=== PATIENT | female | born 1995 | race American Indian/Alaskan Native ===

== ENCOUNTER 2016-07-27 17:58 | Emergency (ER) | payer MEDICAID ==
[2016-07-27 18:15] VITALS: BP 98/66
--- NOTE | 2016-07-27 18:31 | EDM.PDOC ---
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 She complains of being late on her period. she notes menses on June 20 that lasted for a week. she notes intermittent symptoms of cramping with a past few weeks. She has not had her normal menses for the month of July. No fever chills or night sweats. No pelvic pain. No dysuria. No constipation or diarrhea. No pain into the flank. Denies cough or shortness of breath. patient underwent section and the May. She states that she had a period in June that lasted for a week. Patient is not breast-feeding. Patient admits to intercourse with condom usage Timing/Duration: Reports: Week(s):, Gradual onset, Intermittent Location: generalized Quality: Reports: ache, cramping Severity: mild Associated Symptoms (-Female): Reports: denies other symptoms - Related Data Allergies/ADRs: Allergies Allergy/AdvReac Type Severity Reaction Status Date / Time No Known Allergies Allergy Verified 04/14/16 21:12 Home Meds: Home Meds Cyanocobalamin (Vitamin B-12) [Cyanocobalamin Injection] 1,000 mcg IJ ASDIRECTED 02/14/16 [History] Ergocalciferol (Vitamin D2) [Vitamin D] 400 unit PO DAILY 02/14/16 [History] Omeprazole 40 mg PO DAILY 02/14/16 [History] Vit W-Ca,Fe,FA(<1 mg) [ Vitamins] 1 tab PO DAILY 02/14/16 [ History] Pyridoxine HCl [Vitamin B-6] 100 mg PO DAILY 02/14/16 [History] Cephalexin [Keflex] 500 mg PO DAILY 04/14/16 [History] Past Medical History - Past Health History Medical/Surgical History: Denies Medical/Surgical History HEENT History: Reports: Impaired vision Other HEENT History: wears glasses Cardiovascular History: Reports: Heart murmur Respiratory History: Reports: None Gastrointestinal History: Reports: GERD Genitourinary History: Reports: UTI, recurrent 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 Currently Other Musculoskeletal History: bursitits to left shoulder Neurological History: Reports: None Psychiatric History: Reports: Anxiety, Depression Endocrine/Metabolic History: Reports: None, Obesity/BMI 30+ Hematologic History: Reports: Anemia, B12 deficiency, Idiopathic thrombocytopenia, Other (see below) Other Hematologic History: B6 deficiency Immunologic History: Reports: None Oncologic (Cancer) History: Reports: None Dermatologic History: Reports: None - Infectious Disease History Infectious Disease History: Reports: None - Past Surgical History Head Surgeries/Procedures: Reports: None GI Surgical History: Reports: Cholecystectomy Female Surgical History: Reports: section Social & Family History - Family History Family Medical History: Noncontributory - Tobacco Use Smoking Status *Q: Current Every Day Smoker Years of Tobacco use: 6 Packs/Tins Daily: 0.1 Used Tobacco, but Quit: Yes Month Tobacco Last Used: September Second Hand Smoke Exposure: Yes - Caffeine Use Caffeine Use: Reports: Coffee, Soda - Alcohol Use Days Per Week of Alcohol Use: 1 Number of Drinks Per Day: 8 Total Drinks Per Week: 8 - Recreational Drug Use Recreational Drug Use: No - Sexual History Sexual History: Reports: Sexually active - Living Situation & Occupation Living situation: Reports: with family ED ROS GENERAL - Review of Systems Review Of Systems: ROS reveals no pertinent complaints other than HPI. ED EXAM, GI/ABD - Physical Exam Exam: See Below Exam Limited By: No limitations General Appearance: alert, WD/WN, no apparent distress Throat/Mouth: Normal inspection, Normal oropharynx Neck: normal inspection, supple, non-tender, full range of motion Respiratory/Chest: no respiratory distress, lungs clear Cardiovascular: regular rate, rhythm, no murmur GI/Abdominal: normal bowel sounds, soft, no distention, other (mild tenderness to the right and left lower quadrants along with suprapubic. Pain is out of proportion) Back Exam: No: CVA tenderness (L), CVA tenderness (R) Extremities: normal inspection, normal capillary refill Neurological: alert, oriented, CN II-XII intact Skin Exam: Warm, Dry, Intact Course - Vital Signs Last Recorded V/S: Last Vital Signs Temp 97 F 07/27/16 18:12 Pulse 86 07/27/16 18:12 Resp 18 07/27/16 18:12 BP 98/66 07/27/16 18:12 Pulse Ox 100 07/27/16 18:12 - Orders/Labs/Meds Labs: Laboratory Tests 07/27/16 07/27/16 07/27/16 Range/Units 18:08 18:08 18:40 WBC 5.3 (5.0-10.0) 10^3/uL RBC 4.51 (4.2-5.4) 10^6/uL Hgb 12.0 (12.0-16.0) g/dL Hct 37.1 (37.0-47.0) % MCV 82.3 (80-100) fL MCH 26.6 L (27.0-34.0) pg MCHC 32.3 L (33.0-35.0) g/dL Plt Count 124 L (150-450) 10^3/uL Neut % (Auto) 62.0 (42.2-75.2) % Lymph % (Auto) 26.6 (20.5-50.1) % [place] % (Auto) 8.7 H (2-8) % Eos % (Auto) 2.5 (1.0-3.0) % Baso % (Auto) 0.2 (0.0-1.0) % Sodium (135-145) mmol/L Potassium (3.6-5.0) mmol/L Chloride (101-111) mmol/L Carbon Dioxide (21.0-31.0) mmol/L Anion Gap BUN (7-18) mg/dL Creatinine (0.6-1.3) mg/dL Est Cr Clr Drug Dosing mL/min Estimated GFR (MDRD) Glucose (74-105) mg/dL Calcium (8.4-10.2) mg/dl Amylase (28-100) U/L HCG, Quant (0-25) mIU/ml Beta HCG, Quant mIU/ml Urine Color Yellow (YELLOW) Urine Appearance Slightly cloudy (CLEAR) Urine pH 7.0 (5.0-9.0) Ur Specific [place] 1.020 (1.005-1.030) Urine Protein Negative (NEGATIVE) Urine Glucose (UA) Negative (NEGATIVE) Urine Ketones Negative (NEGATIVE) Urine Occult Blood Negative (NEGATIVE) Urine Nitrite Negative (NEGATIVE) Urine Bilirubin Negative (NEGATIVE) Urine Urobilinogen 0.2 (0.2-1.0) mg/dL Ur Leukocyte Esterase Negative (NEGATIVE) Urine RBC 0-5 /HPF Urine WBC 0-5 (0-5/HPF) /HPF Ur Epithelial Cells Many H /HPF Urine Bacteria Moderate H (0-FEW/HPF) /HPF Urine HCG, Qual Positive 07/27/16 07/27/16 Range/Units 18:40 18:40 WBC (5.0-10.0) 10^3/uL RBC (4.2-5.4) 10^6/uL Hgb (12.0-16.0) g/dL Hct (37.0-47.0) % MCV (80-100) fL MCH (27.0-34.0) pg MCHC (33.0-35.0) g/dL Plt Count (150-450) 10^3/uL Neut % (Auto) (42.2-75.2) % Lymph % (Auto) (20.5-50.1) % [place] % (Auto) (2-8) % Eos % (Auto) (1.0-3.0) % Baso % (Auto) (0.0-1.0) % Sodium 137 (135-145) mmol/L Potassium 3.6 (3.6-5.0) mmol/L Chloride 105 (101-111) mmol/L Carbon Dioxide 24.0 (21.0-31.0) mmol/L Anion Gap 11.6 BUN 11 (7-18) mg/dL Creatinine 0.7 (0.6-1.3) mg/dL Est Cr Clr Drug Dosing 99.70 mL/min Estimated GFR (MDRD) > 60 Glucose 79 (74-105) mg/dL Calcium 8.6 (8.4-10.2) mg/dl Amylase 46 (28-100) U/L HCG, Quant > 1370 H (0-25) mIU/ml Beta HCG, Quant 2323 mIU/ml Urine Color (YELLOW) Urine Appearance (CLEAR) Urine pH (5.0-9.0) Ur Specific [place] (1.005-1.030) Urine Protein (NEGATIVE) Urine Glucose (UA) (NEGATIVE) Urine Ketones (NEGATIVE) Urine Occult Blood (NEGATIVE) Urine Nitrite (NEGATIVE) Urine Bilirubin (NEGATIVE) Urine Urobilinogen (0.2-1.0) mg/dL Ur Leukocyte Esterase (NEGATIVE) Urine RBC /HPF Urine WBC (0-5/HPF) /HPF Ur Epithelial Cells /HPF Urine Bacteria (0-FEW/HPF) /HPF Urine HCG, Qual - Re-Assessments/Exams Free Text/Narrative Re-Assessment/Exam: patient has a positive hCG. Ultrasound is unavailable tonight. Patient's last menstrual period was last month. 07/27/16 19:25 Departure - Departure Time of Disposition: 20:11 Disposition: Home, Self-Care 01 Condition: good Clinical Impression: Positive test Forms: ED Department Discharge Additional Instructions: follow up with your regular provider as scheduled for tomorrow. check on your quantitative hCG
[2016-07-27 19:04] LABS: CHLORIDE,CL 105 mmol/L (101-111); SODIUM,NA 137 mmol/L (135-145)
== END 2016-07-27 20:19 | disposition home or self-care (01) ==
LOC: DL.ED 17:58
DX: Z32.01 Encounter for pregnancy test, result positive (principal); R01.1 Cardiac murmur, unspecified; K21.9 Gastro-esophageal reflux disease without esophagitis; F41.9 Anxiety disorder, unspecified; F32.9 Major depressive disorder, single episode, unspecified; E66.9 Obesity, unspecified; F17.210 Nicotine dependence, cigarettes, uncomplicated; Z87.440 Personal history of urinary (tract) infections; Z79.899 Other long term (current) drug therapy; Z86.2 Personal history of diseases of the blood and blood-forming organs and certain disorders involving the immune mechanism; Z90.49 Acquired absence of other specified parts of digestive tract
CPT/HCPCS: 36415; 80048; 81001; 81025; 82150; 84702; 85025; 99283

== ENCOUNTER 2019-01-12 10:54 | Emergency (ER) | payer OTHER, MEDICAID ==
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
[2019-01-12 11:25] VITALS: BP 120/65; PULSE 86
[2019-01-12] MEDS ORDERED: Ibuprofen 800 MG Tab PO ONE (11:37)
== END 2019-01-12 12:10 | disposition home or self-care (01) ==
LOC: DL.ED 10:54
DX: S80.02XA Contusion of left knee, initial encounter (principal); E66.9 Obesity, unspecified; Z68.36 Body mass index [BMI] 36.0-36.9, adult; V49.9XXA Car occupant (driver) (passenger) injured in unspecified traffic accident, initial encounter; Y92.410 Unspecified street and highway as the place of occurrence of the external cause
CPT/HCPCS: 73562; 99283; A9270

== ENCOUNTER 2019-10-22 | Emergency (ER) | payer MEDICAID ==
[2019-10-22 00:26] VITALS: BP 129/72; PULSE 77
[2019-10-22 00:55] LABS: ANION GAP 13.8 mEq/L (7-13); CHLORIDE,CL 102 mmol/L (98-107); SODIUM,NA 140 mmol/L (136-145)
--- NOTE | 2019-10-22 01:34 | EDM.PDOC ---
ED HPI GENERAL MEDICAL PROBLEM - General Chief Complaint: General Stated Complaint: STROKE? Time Seen by Provider: 10/22/19 01:30 Source of Information: Reports: Patient History Limitations: Reports: No Limitations - History of Present Illness INITIAL COMMENTS - FREE TEXT/NARRATIVE: c/o on-off tingling sensation in arms and legs. had this long time ago and went away but this time lasting lot longer. denies been anxious or stressed. 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 Currently Other Musculoskeletal History: bursitits to left shoulder Neurological History: Reports: None Psychiatric History: Reports: Anxiety, Depression Endocrine/Metabolic History: Reports: None, Obesity/BMI 30+ Hematologic History: Reports: Anemia, B12 Deficiency, Idiopathic Thrombocytopenia, Other (See Below) Other Hematologic History: B6 deficiency Immunologic History: Reports: None Oncologic (Cancer) History: Reports: None Dermatologic History: Reports: None - Infectious Disease History Infectious Disease History: Reports: None - Past Surgical History Head Surgeries/Procedures: Reports: None GI Surgical History: Reports: Cholecystectomy Female Surgical History: Reports: Section Social & Family History - Family History Family Medical History: Noncontributory - Tobacco Use Smoking Status *Q: Current Some Day Smoker Years of Tobacco use: 4 Packs/Tins Daily: 0.1 - Caffeine Use Caffeine Use: Reports: Soda - Recreational Drug Use Recreational Drug Use: No - Sexual History Sexual History: Reports: Sexually Active - Living Situation & Occupation Living situation: Reports: with Family Occupation: Employed ED ROS GENERAL - Review of Systems Review Of Systems: Comprehensive ROS is negative, except as noted in HPI. ED EXAM, GENERAL - Physical Exam Exam: See Below Exam Limited By: No Limitations General Appearance: Alert, WD/WN, No Apparent Distress Eye Exam: Bilateral Eye: PERRL (pupils ER @ 4mm) Ears: Hearing Grossly Normal Throat/Mouth: Normal Voice, No Airway Compromise Head: Atraumatic Neck: Non-Tender, Full Range of Motion Respiratory/Chest: No Respiratory Distress Cardiovascular: Regular Rate, Rhythm GI/Abdominal: Soft, Non-Tender Neurological: Alert, Oriented, Normal Cognition, Normal Gait, No Motor/Sensory Deficits Psychiatric: Flat Affect Skin Exam: Warm, Dry, Normal Color Lymphatic: No Adenopathy Course - Vital Signs Text/Narrative:: discussed with pt. Last Recorded V/S: Last Vital Signs Temp 36.4 C 10/22/19 00:19 Pulse 77 10/22/19 00:19 Resp 19 10/22/19 00:19 BP 129/72 10/22/19 00:19 Pulse Ox 100 10/22/19 00:19 - Orders/Labs/Meds Labs: Laboratory Tests 10/22/19 10/22/19 10/22/19 Range/Units 00:27 00:27 01:06 WBC 7.9 (5.0-10.0) 10^3/uL RBC 4.99 (4.2-5.4) 10^6/uL Hgb 13.5 (12.0-16.0) g/dL Hct 41.1 (37.0-47.0) % MCV 82.4 (80-100) fL MCH 27.1 (27.0-34.0) pg MCHC 32.8 L (33.0-35.0) g/dL Plt Count 102 L (150-450) 10^3/uL Neut % (Auto) 62.8 (42.2-75.2) % Lymph % (Auto) 28.7 (20.5-50.1) % [place] % (Auto) 5.7 (2-8) % Eos % (Auto) 2.5 (1.0-3.0) % Baso % (Auto) 0.3 (0.0-1.0) % Sodium 140 (136-145) mmol/L Potassium 3.8 (3.5-5.1) mmol/L Chloride 102 (98-107) mmol/L Carbon Dioxide 28 (21-32) mmol/L Anion Gap 13.8 H (7-13) mEq/L BUN 13 (7-18) mg/dL Creatinine 0.86 (0.55-1.02) mg/dL Est Cr Clr Drug Dosing 79.09 mL/min Estimated GFR (MDRD) > 60 BUN/Creatinine Ratio 15.1 (No establ ref range) Glucose 102 H (74-99) mg/dL Calcium 8.5 (8.5-10.1) mg/dL Total Bilirubin 0.2 (0.2-1.0) mg/dL AST 15 (15-37) U/L ALT 28 (14-59) U/L Alkaline Phosphatase 109 (46-116) U/L Total Protein 7.5 (6.4-8.2) g/dL Albumin 3.8 (3.4-5.0) g/dL Globulin 3.7 Albumin/Globulin Ratio 1.0 Urine Color Light yellow (YELLOW) Urine Appearance Clear (CLEAR) Urine pH 7.5 (5.0-9.0) Ur Specific [place] 1.020 (1.005-1.030) Urine Protein Negative (NEGATIVE) Urine Glucose (UA) Negative (NEGATIVE) Urine Ketones Negative (NEGATIVE) Urine Occult Blood Negative (NEGATIVE) Urine Nitrite Negative (NEGATIVE) Urine Bilirubin Negative (NEGATIVE) Urine Urobilinogen 0.2 (0.2-1.0) mg/dL Ur Leukocyte Esterase Negative (NEGATIVE) Urine HCG, Qual Urine Opiates Screen (NEGATIVE) Ur Oxycodone Screen (NEGATIVE) Urine Methadone Screen (NEGATIVE) Ur Barbiturates Screen (NEGATIVE) U Tricyclic Antidepress (NEGATIVE) Ur Phencyclidine Scrn (NEGATIVE) Ur Amphetamine Screen (NEGATIVE) U Methamphetamines Scrn (NEGATIVE) Urine MDMA Screen (NEGATIVE) U Benzodiazepines Scrn (NEGATIVE) Urine Cocaine Screen (NEGATIVE) U Marijuana (THC) Screen (NEGATIVE) Ethyl Alcohol < 3 (0) mg/dL 10/22/19 10/22/19 Range/Units 01:06 01:06 WBC (5.0-10.0) 10^3/uL RBC (4.2-5.4) 10^6/uL Hgb (12.0-16.0) g/dL Hct (37.0-47.0) % MCV (80-100) fL MCH (27.0-34.0) pg MCHC (33.0-35.0) g/dL Plt Count (150-450) 10^3/uL Neut % (Auto) (42.2-75.2) % Lymph % (Auto) (20.5-50.1) % [place] % (Auto) (2-8) % Eos % (Auto) (1.0-3.0) % Baso % (Auto) (0.0-1.0) % Sodium (136-145) mmol/L Potassium (3.5-5.1) mmol/L Chloride (98-107) mmol/L Carbon Dioxide (21-32) mmol/L Anion Gap (7-13) mEq/L BUN (7-18) mg/dL Creatinine (0.55-1.02) mg/dL Est Cr Clr Drug Dosing mL/min Estimated GFR (MDRD) BUN/Creatinine Ratio (No establ ref range) Glucose (74-99) mg/dL Calcium (8.5-10.1) mg/dL Total Bilirubin (0.2-1.0) mg/dL AST (15-37) U/L ALT (14-59) U/L Alkaline Phosphatase (46-116) U/L Total Protein (6.4-8.2) g/dL Albumin (3.4-5.0) g/dL Globulin Albumin/Globulin Ratio Urine Color (YELLOW) Urine Appearance (CLEAR) Urine pH (5.0-9.0) Ur Specific [place] (1.005-1.030) Urine Protein (NEGATIVE) Urine Glucose (UA) (NEGATIVE) Urine Ketones (NEGATIVE) Urine Occult Blood (NEGATIVE) Urine Nitrite (NEGATIVE) Urine Bilirubin (NEGATIVE) Urine Urobilinogen (0.2-1.0) mg/dL Ur Leukocyte Esterase (NEGATIVE) Urine HCG, Qual Negative Urine Opiates Screen Negative (NEGATIVE) Ur Oxycodone Screen Negative (NEGATIVE) Urine Methadone Screen Negative (NEGATIVE) Ur Barbiturates Screen Negative (NEGATIVE) U Tricyclic Antidepress Negative (NEGATIVE) Ur Phencyclidine Scrn Negative (NEGATIVE) Ur Amphetamine Screen Negative (NEGATIVE) U Methamphetamines Scrn Negative (NEGATIVE) Urine MDMA Screen Negative (NEGATIVE) U Benzodiazepines Scrn Negative (NEGATIVE) Urine Cocaine Screen Negative (NEGATIVE) U Marijuana (THC) Screen Negative (NEGATIVE) Ethyl Alcohol (0) mg/dL Departure - Departure Time of Disposition: 01:33 Disposition: Home, Self-Care 01 Condition: Good Clinical Impression: Paresthesia and pain of both upper extremities - Discharge Information Instructions: Paresthesia, [id number] Additional Instructions: 1) see clinic Wednesday for NEUROLOGY REFERRAL Sepsis Event Note (ED) - Evaluation Sepsis Screening Result: No Definite Risk - Focused Exam Vital Signs: Vital Signs Temp Pulse Resp BP Pulse Ox 10/22/19 00:19 36.4 C 77 19 129/72 100
== END 2019-10-22 01:38 | disposition home or self-care (01) ==
LOC: DL.ED
DX: M79.621 Pain in right upper arm (principal); M79.622 Pain in left upper arm; R20.2 Paresthesia of skin; F17.210 Nicotine dependence, cigarettes, uncomplicated; E66.9 Obesity, unspecified; Z68.36 Body mass index [BMI] 36.0-36.9, adult
CPT/HCPCS: 36415; 80053; 80305-QW; 80307; 81003; 81025; 85025; 99283; 99284

== ENCOUNTER 2019-12-02 18:41 | Emergency (ER) | payer MEDICAID ==
[2019-12-02 19:05] VITALS: BP 129/86; PULSE 92
[2019-12-02] MEDS ORDERED: Amoxicillin 500 MG Cap PO ONE (19:15)
[2019-12-02] MEDS ORDERED: Hydrocortisone/Neomycin/Polymyxin B Otic Susp 10 ML Bottle ONE (19:17)
--- NOTE | 2019-12-02 19:19 | EDM.PDOC ---
ED HPI GENERAL MEDICAL PROBLEM - General Chief Complaint: ENT Problem Stated Complaint: EAR PROBLEMS Time Seen by Provider: 12/02/19 19:16 Source of Information: Reports: Patient History Limitations: Reports: No Limitations - History of Present Illness INITIAL COMMENTS - FREE TEXT/NARRATIVE: woke up with left ear pain Left Ear Pain Score (Numeric/FACES): 5 - Related Data Allergies Allergy/AdvReac Type Severity Reaction Status Date / Time No Known Allergies Allergy Verified 12/02/19 19:00 Home Meds: Home Meds FLUoxetine [PROzac] 10 mg PO DAILY 12/02/19 [History] Past Medical History - Past Health History Medical/Surgical History: Denies Medical/Surgical History HEENT History: Reports: Impaired Vision Other HEENT History: wears glasses Cardiovascular History: Reports: Heart Murmur Respiratory History: Reports: None Gastrointestinal History: Reports: GERD Genitourinary History: Reports: UTI, Recurrent 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 Currently Other Musculoskeletal History: bursitits to left shoulder Neurological History: Reports: None Psychiatric History: Reports: Anxiety, Depression Endocrine/Metabolic History: Reports: None, Obesity/BMI 30+ Hematologic History: Reports: Anemia, B12 Deficiency, Idiopathic Thrombocytop enia, Other (See Below) Other Hematologic History: B6 deficiency Immunologic History: Reports: None Oncologic (Cancer) History: Reports: None Dermatologic History: Reports: None - Infectious Disease History Infectious Disease History: Reports: None - Past Surgical History Head Surgeries/Procedures: Reports: None GI Surgical History: Reports: Cholecystectomy Female Surgical History: Reports: Section Social & Family History - Family History Family Medical History: Noncontributory - Tobacco Use Smoking Status *Q: Light Tobacco Smoker Years of Tobacco use: 1 Packs/Tins Daily: 0.2 - Caffeine Use Caffeine Use: Reports: Soda - Recreational Drug Use Recreational Drug Use: No - Sexual History Sexual History: Reports: Sexually Active - Living Situation & Occupation Living situation: Reports: with Family Occupation: Employed ED ROS ENT - Review of Systems Review Of Systems: Comprehensive ROS is negative, except as noted in HPI. ED EXAM, ENT - Physical Exam Exam: See Below Exam Limited By: No Limitations General Appearance: Alert, WD/WN, Mild Distress, Other (discomfort) Ears: Normal External Exam, Hearing Grossly Normal, Canal Discharge, Canal Material, Canal Swelling, Other (left) Mouth/Throat: Normal Inspection Head: Atraumatic Neck: Non-Tender, Full Range of Motion Respiratory/Chest: No Respiratory Distress Cardiovascular: Regular Rate, Rhythm GI/Abdominal: Soft, Non-Tender Neurological: Alert, Oriented, Normal Cognition, Normal Gait, No Motor/Sensory Deficits Psychiatric: Flat Affect, Tearful Skin: Warm, Dry, Normal Color Lymphatic: No Adenopathy Course - Vital Signs Last Recorded V/S: Last Vital Signs Temp 36.8 C 12/02/19 19:00 Pulse 92 12/02/19 19:00 Resp 16 12/02/19 19:00 BP 129/86 12/02/19 19:00 Pulse Ox 100 12/02/19 19:00 - Orders/Labs/Meds Orders: Active Orders 24 hr Category Date Time Status Amoxicillin [Amoxil] Med 12/02/19 19:15 Once 500 mg PO ONETIME ONE Medication Orders Amoxicillin (Amoxil) 500 mg PO ONETIME ONE Stop: 12/02/19 19:16 Meds: Medications Generic Name Dose Route Start Last Admin Trade Name Zoe PRN Reason Stop Dose Admin Amoxicillin 500 mg 12/02/19 19:15 Amoxil PO 12/02/19 19:16 ONETIME ONE Departure - Departure Time of Disposition: 19:17 Disposition: Home, Self-Care 01 Condition: Good Clinical Impression: Otitis externa Qualifiers: Otitis externa type: diffuse Chronicity: acute Laterality: left Qualified Code(s): H60.312 - Diffuse otitis externa, left ear - Discharge Information Instructions: Otitis Externa, [id number] Additional Instructions: 1) don't get water inside ear 2) follow up at clinic rx togo; corticoporin otic qid x 1 week rx givne; amox 250mg tid x 30 Sepsis Event Note (ED) - Evaluation Sepsis Screening Result: No Definite Risk - Focused Exam Vital Signs: Vital Signs Temp Pulse Resp BP Pulse Ox 12/02/19 19:00 36.8 C 92 16 129/86 100 - My Orders Last 24 Hours: My Active Orders 12/02/19 19:15 Amoxicillin [Amoxil] 500 mg PO ONETIME ONE - Assessment/Plan Last 24 Hours: My Active Orders 12/02/19 19:15 Amoxicillin [Amoxil] 500 mg PO ONETIME ONE
== END 2019-12-02 19:24 | disposition home or self-care (01) ==
LOC: DL.ED 18:41
DX: H60.312 Diffuse otitis externa, left ear (principal); F32.9 Major depressive disorder, single episode, unspecified; F41.9 Anxiety disorder, unspecified; E66.9 Obesity, unspecified; F17.210 Nicotine dependence, cigarettes, uncomplicated; Z90.49 Acquired absence of other specified parts of digestive tract; Z68.36 Body mass index [BMI] 36.0-36.9, adult; Z79.899 Other long term (current) drug therapy
CPT/HCPCS: 99282; A9270; 99283

== ENCOUNTER 2020-01-07 15:37 | Emergency (ER) | payer MEDICAID ==
[2020-01-07 15:48] VITALS: BP 129/84; PULSE 107
[2020-01-07] MEDS ORDERED: Amoxicillin/Clavulanate K 875-125 MG Tab PO ONE (16:10)
--- NOTE | 2020-01-07 16:10 | EDM.PDOC ---
<Celestine Peña - Last Filed: 01/07/20 16:44> ED HPI GENERAL MEDICAL PROBLEM - General Chief Complaint: ENT Problem Stated Complaint: BOTH EARS SORE. Time Seen by Provider: 01/07/20 16:00 Source of Information: Reports: Patient History Limitations: Reports: No Limitations - History of Present Illness INITIAL COMMENTS - FREE TEXT/NARRATIVE: Patient is a 24 y/o female who presents ambulatory to the ED c/o bilateral ear pain, sinus congestion, and sore throat. Onset of illness was three days ago. She has tried Sudafed and Benadryl without relief. Reports of history of AOM about a month ago. This was treated with amoxicillin. She has been coughing up some mucus related to her sinus draining down her throat. Denies any shortness of breath. She denies fever, fatigue, weakness, headache, loss of taste/smell, nausea, vomiting, or body aches. Bilateral Ear Pain Score (Numeric/FACES): 4 - Related Data Allergies Allergy/AdvReac Type Severity Reaction Status Date / Time No Known Allergies Allergy Verified 01/07/20 15:52 Home Meds: Home Meds FLUoxetine [PROzac] 10 mg PO DAILY 12/02/19 [History] Amoxicillin/Potassium Clav [Augmentin 875-125 Tablet] 1 each PO BID 7 Days #14 tablet 01/07/20 [Rx] Cyanocobalamin (Vitamin B12) [Vitamin B12] 1,000 mcg IM Q30D 01/07/20 [History] Past Medical History - Past Health History Medical/Surgical History: Denies Medical/Surgical History HEENT History: Reports: Impaired Vision Other HEENT History: wears glasses Cardiovascular History: Reports: Heart Murmur Respiratory History: Reports: None Gastrointestinal History: Reports: GERD Genitourinary History: Reports: UTI, Recurrent HEMODIALYSIS TECHNICIAN History: Reports: Other HEMODIALYSIS TECHNICIAN History: c-sect. Currently Musculoskeletal History: Reports: Other (See Below) Other Musculoskeletal History: bursitits to left shoulder Neurological History: Reports: None Psychiatric History: Reports: Anxiety, Depression Endocrine/Metabolic History: Reports: Obesity/BMI 30+ Hematologic History: Reports: Anemia, B12 Deficiency, Idiopathic Throm bocytopenia, Other (See Below) Other Hematologic History: B6 deficiency Immunologic History: Reports: None Oncologic (Cancer) History: Reports: None Dermatologic History: Reports: None - Infectious Disease History Infectious Disease History: Reports: None - Past Surgical History Head Surgeries/Procedures: Reports: None GI Surgical History: Reports: Cholecystectomy Female Surgical History: Reports: Section Social & Family History - Family History Family Medical History: Noncontributory - Tobacco Use Smoking Status *Q: Current Every Day Smoker Years of Tobacco use: 10 Packs/Tins Daily: 0.5 - Caffeine Use Caffeine Use: Reports: Soda - Sexual History Sexual History: Reports: Sexually Active - Living Situation & Occupation Living situation: Reports: with Family Occupation: Employed ED ROS ENT - Review of Systems Review Of Systems: Comprehensive ROS is negative, except as noted in HPI. ED EXAM, ENT - Physical Exam Exam: See Below Exam Limited By: No Limitations General Appearance: Alert, WD/WN, No Apparent Distress Eye Exam: Bilateral Eye: EOMI, Normal Inspection, PERRL Ears: Normal External Exam, Normal Canal, Hearing Grossly Normal, Normal TMs (right), TM Bulging (left), TM Erythema (left) Nose: Normal Inspection, Normal Mucousa Mouth/Throat: Normal Inspection, Normal Gums, Normal Lips, Normal Oropharynx, Normal Teeth. No: Tonsillar Erythema, Tonsillar Exudates, Tonsillar Swelling Head: Atraumatic, Normocephalic Neck: Normal Inspection, Supple, Non-Tender. No: Lymphadenopathy (L), Lymphadenopathy (R) Respiratory/Chest: No Respiratory Distress, Lungs Clear, Normal Breath Sounds, No Accessory Muscle Use Cardiovascular: Normal Peripheral Pulses, Regular Rate, Rhythm, No Murmur GI/Abdominal: Normal Bowel Sounds, Soft, Non-Tender, No Distention Neurological: Alert, Oriented, Normal Cognition, Normal Gait, No Motor/Sensory Deficits Psychiatric: Normal Affect, Normal Mood Skin: Warm, Dry, Intact Departure - Departure Time of Disposition: 16:03 Disposition: Home, Self-Care 01 Condition: Good Clinical Impression: Otitis media Qualifiers: Otitis media type: suppurative Chronicity: acute Laterality: left Recurrence: recurrent Spontaneous tympanic membrane rupture: without spontaneous rupture Qualified Code(s): H66.005 - Acute suppurative otitis media without spontaneous rupture of ear drum, recurrent, left ear - Discharge Information *PRESCRIPTION DRUG MONITORING PROGRAM REVIEWED*: Not Applicable *COPY OF PRESCRIPTION DRUG MONITORING REPORT IN PATIENT TILA: Not Applicable Prescriptions: Amoxicillin/Potassium Clav [Augmentin 875-125 Tablet] 1 each PO BID 7 Days #14 tablet Instructions: Otitis Media, Adult, [id number] Forms: ED Department Discharge Additional Instructions: -Take antibiotics as prescribed -- one tablet twice a day for seven days. -Drink lots of fluids. -Use ibuprofen (up to 800 mg) every 6 hours as needed. You may also use Tylenol (up to 1000 mg) every six hours along with the ibuprofen. -Drink hot tea with honey and lemon for relief of your sore throat. -If your symptoms do not improve over the next week, follow up with your primary care provider. If you do not have a primary care provider, schedule an appointment in the clinic to establish care. Sepsis Event Note (ED) - Evaluation Sepsis Screening Result: No Definite Risk - Problem List & Annotations (1) Otitis media SNOMED Code(s): 03599975 Code(s): H66.90 - OTITIS MEDIA, UNSPECIFIED, UNSPECIFIED EAR Status: Acute Priority: Medium Qualifiers: Otitis media type: suppurative Chronicity: acute Laterality: left Recurrence: recurrent Spontaneous tympanic membrane rupture: without spontaneous rupture Qualified Code(s): H66.005 - Acute suppurative otitis media without spontaneous rupture of ear drum, recurrent, left ear - Problem List Review Problem List Initiated/Reviewed/Updated: Yes - Assessment/Plan Assessment:: Left TM is erythematous and bulging. Recurrence of acute otitis media. Plan: Prescribed 10 day course of Augmentin. First dose given prior to discharge. Counseled on symptomatic management. Follow up in primary care if symptoms do not resolve over the next week. Patient voices understanding and agreement with the plan. <Arturo Franco - Last Filed: 01/07/20 18:22> Course - Vital Signs Last Recorded V/S: Last Vital Signs Temp 98.4 F 01/07/20 15:39 Pulse 107 H 01/07/20 15:39 Resp 16 01/07/20 15:39 BP 129/84 01/07/20 15:39 Pulse Ox 100 01/07/20 15:39 - Orders/Labs/Meds Meds: Medications Discontinued Medications Generic Name Dose Route Start Last Admin Trade Name Freq PRN Reason Stop Dose Admin Amoxicillin/Clavulanate Potassium 1 tab 01/07/20 16:10 01/07/20 16:17 Augmentin 875 Mg/125 Mg PO 01/07/20 16:11 1 tab ONETIME ONE Administration - Re-Assessments/Exams Free Text/Narrative Re-Assessment/Exam: 01/07/20 16:19 I saw and evaluated the patient. Discussed with resident and agree with residents findings and plan as documented in the residents note. Sepsis Event Note (ED) - Focused Exam Vital Signs: Vital Signs Temp Pulse Resp BP Pulse Ox 01/07/20 15:39 98.4 F 107 H 16 129/84 100
== END 2020-01-07 16:25 | disposition home or self-care (01) ==
LOC: DL.ED 15:37
DX: H66.005 Acute suppurative otitis media without spontaneous rupture of ear drum, recurrent, left ear (principal); H92.03 Otalgia, bilateral; F41.9 Anxiety disorder, unspecified; F32.9 Major depressive disorder, single episode, unspecified; E66.9 Obesity, unspecified; F17.210 Nicotine dependence, cigarettes, uncomplicated; Z79.899 Other long term (current) drug therapy; Z68.29 Body mass index [BMI] 29.0-29.9, adult
CPT/HCPCS: 99282; 99283; A9270

== ENCOUNTER 2020-10-26 13:25 | Emergency (ER) | payer MEDICAID | END 2020-10-26 14:08 | disposition left against medical advice (07) | LOC: DL.ED 13:25 | DX: Z53.21 Procedure and treatment not carried out due to patient leaving prior to being seen by health care provider (principal) ==

== ENCOUNTER 2020-10-27 13:56 | Emergency (ER) | payer MEDICAID | END 2020-10-27 14:54 | disposition left against medical advice (07) | LOC: DL.ED 13:56 | DX: H92.09 Otalgia, unspecified ear (principal); Z53.21 Procedure and treatment not carried out due to patient leaving prior to being seen by health care provider ==

== ENCOUNTER 2021-05-05 11:37 | Emergency (ER) | payer MEDICAID ==
[2021-05-05 12:04] VITALS: BP 127/88; PULSE 66
[2021-05-07 12:47] LABS: C.TRACHOMATIS BY TMA Negative (Negative); N.GONORRHOEAE BY TMA Negative (Negative)
== END 2021-05-05 15:00 | disposition left against medical advice (07) ==
LOC: DL.ED 11:37
DX: Z53.21 Procedure and treatment not carried out due to patient leaving prior to being seen by health care provider (principal)
CPT/HCPCS: 36415; 81001; 81025; 87491; 87563; 87591

== ENCOUNTER 2022-01-02 19:47 | Emergency (ER) | payer MEDICAID ==
[2022-01-02] MEDS ORDERED: Ketorolac 30 MG/ML SDV IM ONE (20:42)
[2022-01-02] MEDS ORDERED: Acetaminophen 500 MG Tab PO ONE (21:50)
[2022-01-02] MEDS ORDERED: Oxymetazoline 0.05% Nasal Spray 30 ML Bottle NAS ONE (21:50)
[2022-01-02] MEDS ORDERED: Benzonatate 100 MG Cap PO ONE (21:51)
[2022-01-02 22:15] VITALS: BP 123/64; PULSE 84
== END 2022-01-02 22:17 | disposition home or self-care (01) ==
LOC: DL.ED 19:47
DX: U07.1 COVID-19 (principal); E66.9 Obesity, unspecified; Z68.38 Body mass index [BMI] 38.0-38.9, adult; Z79.899 Other long term (current) drug therapy; Z86.16 Personal history of COVID-19; Z90.49 Acquired absence of other specified parts of digestive tract
CPT/HCPCS: 99282; 99283; A9270; J1885

== ENCOUNTER 2022-07-12 23:37 | Emergency (ER) | payer MEDICAID ==
[2022-07-12 23:57] VITALS: BP 136/96; PULSE 73
[2022-07-13] MEDS ORDERED: Ketorolac 30 MG/ML SDV IVPUSH ONE (00:31)
[2022-07-13 00:50] LABS: CHLORIDE,CL 105 mmol/L (98-107); SODIUM,NA 142 mmol/L (136-145)
[2022-07-13 00:51] LABS: ESTIMATED GFR 101 mL/min (>=60)
== END 2022-07-13 01:52 | disposition home or self-care (01) ==
LOC: DL.ED 23:37
DX: R10.32 Left lower quadrant pain (principal); R10.31 Right lower quadrant pain; R11.0 Nausea; E66.9 Obesity, unspecified; F17.210 Nicotine dependence, cigarettes, uncomplicated; Z86.16 Personal history of COVID-19; Z68.37 Body mass index [BMI] 37.0-37.9, adult; Z90.49 Acquired absence of other specified parts of digestive tract
CPT/HCPCS: 36415; 80053; 81003; 81025; 82150; 83690; 83735; 85025; 86140; 96374; 99283; 99284-25; J1885

== ENCOUNTER 2023-01-02 09:27 | Emergency (ER) | payer BC, MEDICAID ==
[2023-01-02 09:55] VITALS: BP 142/99; PULSE 80
[2023-01-02] MEDS ORDERED: Ondansetron 4 MG Tab.DIS PO ONE (10:28)
[2023-01-02 10:46] LABS: CORONAVIRUS COVID-19 NAA NEGATIVE (NEGATIVE); INFLUENZA A NAA NEGATIVE (NEGATIVE); INFLUENZA B NAA NEGATIVE (NEGATIVE)
== END 2023-01-02 10:43 | disposition home or self-care (01) ==
LOC: DL.ED 09:27
DX: J06.9 Acute upper respiratory infection, unspecified (principal); R11.14 Bilious vomiting; E66.9 Obesity, unspecified; F17.210 Nicotine dependence, cigarettes, uncomplicated; Z68.39 Body mass index [BMI] 39.0-39.9, adult; Z86.16 Personal history of COVID-19; Z20.822 Contact with and (suspected) exposure to COVID-19
CPT/HCPCS: 0240U; 87081; 87430; 99283; 99284; A9270-GY

== ENCOUNTER 2025-02-23 17:46 | Emergency (ER) | payer BC, MEDICAID ==
[2025-02-23 18:06] LABS: APPEARANCE,URINE CLEAR (CLEAR); GLUCOSE,URINE NEGATIVE (NEGATIVE); OCCULT BLOOD,URINE SMALL (NEGATIVE)
[2025-02-23] MEDS: Ketorolac 30 MG/ML SDV IVPUSH ONE (18:18)
[2025-02-23 18:45] LABS: PLATELET COUNT,PLT 147 10^3/uL (150-450); RED BLOOD CELL COUNT 5.02 10^6/uL (4.2-5.4); WHITE BLOOD CELL COUNT,WBC 8.7 10^3/uL (5.0-10.0)
[2025-02-23 18:46] LABS: EPITHELIAL CELLS,URINE FEW /HPF (NOT SEEN)
[2025-02-23 18:56] LABS: BASOPHILS PERCENT AUTO 0.2 % (0.0-1.0); EOSINOPHILS PERCENT AUTO 1.7 % (1.0-3.0); LYMPHOCYTES PERCENT AUTO 27.2 % (20.5-50.1); MONOCYTES PERCENT AUTO 4.9 % (2-8); NEUTROPHILS PERCENT AUTO 66.0 % (42.2-75.2)
[2025-02-23 19:13] LABS: LACTIC ACID 1.6 mmol/L (0.4-2.0)
[2025-02-23 19:16] LABS: A/G RATIO 0.9; ALANINE AMINOTRANSFERASE,ALT 29.0 U/L (14-59); ASPARTATE AMNIOTRANSFERASE,AST 21.0 U/L (15-37); BILIRUBIN TOTAL 0.2 mg/dL (0.2-1.0); BLOOD UREA NITROGEN,BUN 16.0 mg/dL (7-18); CARBON DIOXIDE,CO2 26.0 mmol/L (21-32); CHLORIDE,CL 106.0 mmol/L (98-107); CREATININE 1.03 mg/dL (0.55-1.02); EST CRCL DRUG DOSING (CG) 65.46 mL/min; GLUCOSE RANDOM 97.0 mg/dL (70-99); POTASSIUM,K 4.0 mmol/L (3.5-5.1); PROTEIN TOTAL,TP 7.8 g/dL (6.4-8.2); SODIUM,NA 142.0 mmol/L (136-145)
[2025-02-23 19:17] LABS: ESTIMATED GFR 75.0 mL/min (>=60)
[2025-02-23 19:41] LABS: INR 0.9 (0.9-1.2); PTT,PARTIAL THROMBOPLSTIN TIME 25.8 SEC (22.0-34.0)
[2025-02-23 20:00] LABS: EOSINOPHILS PERCENT MAN 2 % (1-3); LYMPHOCYTES PERCENT MAN 27 % (20-50); MONOCYTES PERCENT MAN 5 % (2-8); SEG NEUTROPHILS PERCENT MAN 66 % (42-75)
[2025-02-23] MEDS: Iopamidol 612 MG/ML 100 ML Bottle IVPUSH ONE (20:02)
[2025-02-24 00:02] VITALS: BP 137/97; PULSE 71
[2025-02-28 12:46] LABS: C.TRACHOMATIS BY TMA Negative (Negative); M GENITALIUM Negative (Negative); M GENITALIUM SOURCE Urine; N.GONORRHOEAE BY TMA Negative (Negative)
== END 2025-02-23 22:23 | disposition home or self-care (01) ==
LOC: DL.ED 17:46
DX: R30.0 Dysuria (principal); F17.200 Nicotine dependence, unspecified, uncomplicated; Z90.49 Acquired absence of other specified parts of digestive tract; Z86.16 Personal history of COVID-19
CPT/HCPCS: 36415; 74178; 80053; 81001; 81025; 82947; 83605; 85025; 85610; 85730; 86140; 86592; 87040; 87491; 87563; 87591; 96374; 96375; 99284; A9270; J0696; J1885; Q9967